=== PATIENT | female | born 1955 | race Caucasian/White ===

== ENCOUNTER 2023-04-13 16:18 | Emergency (ER) | payer BC, OTHER ==
[~2023-04-13] VITALS: Ht 149.9 cm; Wt 54.0 kg
[2023-04-13 16:42] VITALS: BP_SYST 113; PULSE 84; RESP 16; TEMP 98.5; O2SAT 96
[2023-04-13] MEDS ORDERED: NACL 0.9% 1,000 ML IV ONE (17:00)
[2023-04-13] MEDS ORDERED: DIPHENHYDRAMINE INJ 50 MG/ML VIAL IVP ONE (17:00)
[2023-04-13] MEDS ORDERED: PROCHLORPERAZINE EDISYLATE 10 MG/2 ML VIAL IVP ONE (17:00)
[2023-04-13] MEDS ORDERED: METOCLOPRAMIDE HCL 10 MG/2 ML VIAL IVP ONE (17:30)
[2023-04-13 17:45] LABS: BILIRUBIN,URINE NEGATIVE (NEGATIVE); BLOOD, URINE NEGATIVE (NEGATIVE); CLARITY/URINE CLEAR (CLEAR); COLOR,URINE YELLOW (YELLOW); GLUCOSE,URINE NEGATIVE (NEGATIVE); KETONES,URINE NEGATIVE (NEGATIVE); LEUKOCYTE ESTERASE ,URINE NEGATIVE (NEGATIVE); NITRITE, URINE NEGATIVE (NEGATIVE); PROTEIN URINE NEGATIVE (NEGATIVE); UROBILINOGEN,URINE 0.2 (0.2-1.0)
[2023-04-13 19:21] VITALS: BP_SYST 104; PULSE 79; RESP 18; TEMP 98.5; O2SAT 100
== END 2023-04-13 19:21 | disposition home or self-care (01) ==
LOC: SED 16:18
DX: G43.909 Migraine, unspecified, not intractable, without status migrainosus (principal); R11.0 Nausea; R35.0 Frequency of micturition; J45.909 Unspecified asthma, uncomplicated; Z88.1 Allergy status to other antibiotic agents; Z88.5 Allergy status to narcotic agent; Z88.6 Allergy status to analgesic agent; Z91.041 Radiographic dye allergy status; Z79.899 Other long term (current) drug therapy
CPT/HCPCS: 99284; 96374; 96361; 96375; 81001; 81003; J1200; J2765; J7030